=== PATIENT | female | born 2000 | race Caucasian/White ===

== ENCOUNTER 2024-11-03 16:32 | Inpatient (IN) | payer OTHER ==
[2024-11-03] VITALS (7 sets, daily range): BP systolic 110–123; BP diastolic 63–81
[~2024-11-03] VITALS: Ht 170.2 cm; Wt 74.8 kg
[2024-11-03] MEDS ORDERED: ECOTRIN81 MG PO (16:49)
[2024-11-03] MEDS ORDERED: PRENATAL TABLE1 EAC1 PO (16:49)
[2024-11-03] MEDS ORDERED: RINGERS SOLUTION,LACTATED 1,000 ML IV SCH (17:00)
[2024-11-03 17:49] LABS: BASO % 0.2 % (0.1-1.2); EOS # 0.01 (0.04-0.54); EOS % 0.1 % (0.7-7.0); HEMATOCRIT 34.9 % (34.1-44.9); LYMPH # 1.42 (1.18-3.74); LYMPH % 8.3 % (19.3-53.1); MEAN CORPUSCULAR HEMOGLOBIN 30.8 pg (25.6-32.2); MONO % 2.9 % (4.7-12.5); NEUT # 15.11 (1.56-6.13); PLATELET COUNT 272 K/uL (163-369); RED CELL DISTRIBUTION WIDTH 13.2 % (11.6-14.4)
[2024-11-03 17:51] LABS: PH,URINE 6.5 (5.0-8.0); URINE APPEARANCE Clear; URINE BILIRRUBIN Negative (NEGATIVE); URINE BLOOD Negative; URINE COLOR Yellow; URINE GLUCOSE Negative (NEGATIVE); URINE LEUKOCYTE Trace; URINE NITRATE Negative; URINE PROTEIN 30 (NEGATIVE)
[2024-11-03 17:55] LABS: URINE BACTERIA 804.1 uL (0.0-1933); URINE EPITHELIAL CELLS 30.3 uL (0.0-38.8); URINE RBC 5.3 uL (0.0-20.8); URINE WBC 38.2 uL (0.0-23.2)
[2024-11-03 18:23] LABS: URINE CAST 0.44 uL (0.0-1.40); URINE KETONE 80 (NEGATIVE)
[2024-11-03] MEDS ORDERED: CLINDAMYCIN PHOSPHATE 900 MG in 0.9 % SODIUM CHLORIDE 100 ML IV SCH (18:36)
[2024-11-03 20:03] LABS: INR < 0.93; PROTHROMBIN TIME 10.2 SECONDS (9.0-11.5)
[2024-11-03] MEDS ORDERED: OXYTOCIN 20 UNITS/1000ML RL PIGGYBAG IV ONE (20:33)
[2024-11-03] MEDS ORDERED: CHLORHEXIDINE GLUCONATE 120 ML BOTTLE TOP ONE (20:33)
[2024-11-03] MEDS ORDERED: ERYTHROMYCIN BASE OPHT 1GM EACH TUBE OP ONE ×2 (20:33→21:45)
[2024-11-03] MEDS ORDERED: LIDOCAINE HCL 1% 10ML VIAL ONE (20:34)
[2024-11-03] MEDS ORDERED: CHLORHEXIDINE GLUCONATE 120 ML BOTTLE TOP SCH (21:30)
[2024-11-03] MEDS ORDERED: IBUprofen 400 MG TABLET PO PRN (21:30)
[2024-11-03] MEDS ORDERED: OXYTOCIN 1,000 ML IV SCH (21:30)
[2024-11-03] MEDS ORDERED: LIDOCAINE HCL 1% 10ML VIAL PERCUT ONE (21:45)
[2024-11-04] VITALS: BP 104/65
[2024-11-04 09:00] VITALS: BP 114/75
[2024-11-04 17:10] VITALS: BP 119/72
[2024-11-05 01:25] VITALS: BP 109/70
[2024-11-05 08:49] VITALS: BP 111/73
[2024-11-05] MEDS ORDERED: NAPR500T14 PO (10:59)
== END 2024-11-05 16:42 | disposition home or self-care (01) | DRG 807 ==
LOC: OBS/DEL 16:32 → LDR 18:38 → OB/GYN 18:38
PROVIDERS: ADMIT Obstetrics & Gynecology; ATTEND Obstetrics & Gynecology
PROC: 10E0XZZ Delivery of Products of Conception, External Approach (ICD-10-PCS; principal; 2024-11-03)
PROC: 0UQG7ZZ Repair Vagina, Via Natural or Artificial Opening (ICD-10-PCS; 2024-11-03)
PROC: 4A1HXCZ Monitoring of Products of Conception, Cardiac Rate, External Approach (ICD-10-PCS; 2024-11-03)
DX: O71.4 Obstetric high vaginal laceration alone (principal); Z37.0 Single live birth; Z3A.38 38 weeks gestation of pregnancy